=== PATIENT | female | born 1985 | race Hispanic/Latino ===

== ENCOUNTER → 2018-09-24 | Day surgery (SDC) | payer OTHER ==
[~2018-09-24] MED LIST: DICYCLOMINE HCL20 MG PO; LIDOCAINE HCL 2% LOCAL INJ 5 ML SDV VIAL INJ ONE; MIDAZOLAM HCL 2 MG/2 ML VIAL ONE; PANTOPRAZOLE SO40 MG PO; PROPOFOL IV EMULSION 10 MG/ML 50 ML VIAL ONE
--- OUTSIDE RECORDS SUMMARY | 2018-09-24 12:26 | XMS REPORT | Clinical Summary ---
Author Author [facility] Address Unknown Phone Unavailable Care Team Providers Care Motion Picture Director Name Role Phone Asked, No Pcp PCP Unavailable Allergies Comments Active Allergy Reactions Severity Noted Date Cephalexin 11/03/2017 Medications End Date Status Medication Sig Dispensed Refills Start Date 11/03/2018 Active pantoprazole (PROTONIX) Take 1 tablet 30 tablet 1 40 MG EC (40 mg total) 8 tabletIndications: by mouth Gastroesophageal reflux daily. disease, esophagitis presence not specified Active Problems Not on file Encounters Care Team Description Date Type Specialty Steve Almeida MD 11/17/2017 Telephone Gastroenterology Steve Almeida MD 11/11/2017 Telephone Gastroenterology Steve Almeida MD 11/11/2017 Documentation Gastroenterology Michelle Saenz MA 11/10/2017 Telephone Gastroenterology Steve Almeida MD Gastroesophageal reflux disease, esophagitis presence not specified (Primary Dx); Irritable bowel syndrome with constipation 11/03/2017 Office Visit Gastroenterology after 09/23/2017 Social History Date Tobacco Use Types Packs/Day Years Used Never Smoker Smokeless Tobacco: Never Used Alcohol Use Drinks/Week oz/Week Comments No Sex Assigned at Date Recorded Not on file Industry Job Start Date Occupation Not on file Not on file Not on file Travel End Travel History Travel Start No recent travel history available. Last Filed Vital Signs Time Taken Vital Sign Reading 11/03/2017 2:11 PM CDT Blood Pressure 108/79 11/03/2017 2:11 PM CDT Pulse 74 11/03/2017 2:11 PM CDT Temperature 36.8 C (98.2 F) - Respiratory Rate - - Oxygen Saturation - - Inhaled Oxygen - Concentration 11/03/2017 2:11 PM CDT Weight 56.2 kg (124 lb) 11/03/2017 2:11 PM CDT Height 154.9 cm (5' 1") 11/03/2017 2:11 PM CDT Body Mass Index 23.43 Plan of Treatment Health Maintenance Due Date Last Done Comments CERVICAL CANCER SCREENING 2006 INFLUENZA VACCINE 03/04/2018 Results Not on fileafter 09/23/2017 Insurance Payer Benefit Subscriber ID Type Phone Address Plan / Group [facility] xxxxxxxxx HMO/PPO THCARE CHOICE/CHO ICE + Advance Directives Patient has advance care planning documents on file. For more information, vince arguelles contact: Zhang Kearney [address] [place] [address]
[2018-09-24 16:05] VITALS: BP 109/70
--- NOTE | 2018-09-25 00:15 | Operative Report ---
DATE OF PROCEDURE: 09/24/2018 INDICATION FOR EGD: Upper abdominal pain and nausea. MEDICATIONS: The patient was done under MAC. Please see anesthesiologist's note. DESCRIPTION OF PROCEDURE: With the patient in left lateral decubitus position, a flexible fiberoptic Olympus gastroscope was introduced into the esophagus under direct visualization without any difficulty. There was some patchy erythema noted in the distal esophagus. The scope was then advanced with ease into the stomach. Mucosa overlying the antrum and the body revealed some patchy intense erythema and moderate edema, and biopsies were obtained and sent to stain for H. pylori. Pylorus was of normal contour and shape, was intubated with ease and the scope was advanced all the way to the second portion of the duodenum. The mucosa overlying the proximal second portion of the duodenal bulb revealed some patchy intense erythema and moderate edema. Biopsies were obtained to rule out sprue. The scope was then withdrawn back into the stomach and retroflexed. Mucosa overlying the fundus and the cardia appeared to be within normal limits. The scope was then straightened out and was subsequently withdrawn. The patient tolerated the procedure well. IMPRESSION: 1. Distal esophagitis. 2. Gastritis, biopsied. Biopsies sent to stain for Helicobacter pylori . 3. Duodenitis, moderately severe. Biopsies were obtained to rule out Sprue. PLAN: Followup pathology. Increase Protonix to 40 mg 1 p.o. a.c. b.i.d. Mauricio Ram MD [facility] [place]/[facility] /[id number] cc: Bethel Narvaez MD
== END | disposition home or self-care (01) ==
LOC: OR 12:24
PROVIDERS: ATTEND Internal Medicine Gastroenterology
DX: K29.70 Gastritis, unspecified, without bleeding (principal); K29.80 Duodenitis without bleeding; K20.9 Esophagitis, unspecified; K52.89 Other specified noninfective gastroenteritis and colitis; Z88.1 Allergy status to other antibiotic agents
CPT/HCPCS: 43239; 81025; J2001; J2250; J2704

== ENCOUNTER 2021-04-22 10:03 | Emergency (ER) | payer OTHER ==
[~2021-04-22] VITALS: Ht 154.9 cm; Wt 53.2 kg
[~2021-04-22 10:03] MED LIST changes: -LIDOCAINE HCL 2% LOCAL INJ 5 ML SDV VIAL INJ ONE; -MIDAZOLAM HCL 2 MG/2 ML VIAL ONE; -PROPOFOL IV EMULSION 10 MG/ML 50 ML VIAL ONE
[2021-04-22] MEDS ORDERED: RIZATRIPTAN10 MG (10:27)
[2021-04-22] MEDS ORDERED: IMITREX100 MG PO (10:27)
[2021-04-22] MEDS ORDERED: DIPHENHYDRAMINE HCL INJ 50 MG/ML VIAL IV ONE (12:00)
[2021-04-22] MEDS ORDERED: DEXAMETHASONE SOD PHOS 10 MG/1 ML VIAL IV NR (12:00)
[2021-04-22] MEDS ORDERED: SODIUM CHLORIDE 0.9% 1000ML 1,000 ML IV SCH (12:00)
[2021-04-22] MEDS ORDERED: METOCLOPRAMIDE HCL 10 MG/2ML VIAL IV ONE (12:00)
[2021-04-22] MEDS ORDERED: DEXAMETHASONE SOD PHOS INJ 4 MG/ML SDV ONE (12:12)
[2021-04-22] MEDS ORDERED: KETOROLAC TROMETHAMINE 30 MG/ML VIAL IV STA (13:40)
[2021-04-22] MEDS ORDERED: FIORICET-COD 51 EACH PO (13:42)
[2021-04-22] MEDS ORDERED: KETOROLAC TROMETHAMINE 30 MG/ML VIAL ONE (13:58)
== END 2021-04-22 14:00 | disposition home or self-care (01) ==
LOC: FSED 12:05
DX: G43.919 Migraine, unspecified, intractable, without status migrainosus (principal)
CPT/HCPCS: 96374; 96375; 99283; J1100; J1200; J1885; J2765; J7030

== ENCOUNTER 2024-03-21 13:33 | Emergency (ER) | payer OTHER ==
[~2024-03-21] VITALS: Ht 154.9 cm; Wt 55.0 kg
[~2024-03-21 13:33] MED LIST changes: +FIORICET-COD 51 EACH PO; +IMITREX100 MG PO; +RIZATRIPTAN10 MG
[2024-03-21] MEDS ORDERED: SODIUM CHLORIDE 0.9% 1000ML 1,000 ML ONE (15:16)
[2024-03-21] MEDS: METOCLOPRAMIDE HCL 10 MG/2ML VIAL IV ONE (15:20)
[2024-03-21] MEDS: KETOROLAC TROMETHAMINE 30 MG/ML VIAL IV STA (15:20)
[2024-03-21] MEDS: SODIUM CHLORIDE 0.9% 1000ML 1,000 ML IV ONE (15:20)
[2024-03-21] MEDS: DIPHENHYDRAMINE HCL INJ 50 MG/ML VIAL IV ONE (15:20)
[2024-03-21 16:05] VITALS: PULSE 66; RESP 16; TEMP 97.9; O2SAT 98
== END 2024-03-21 16:05 | disposition home or self-care (01) ==
LOC: FSED 14:15
DX: G43.919 Migraine, unspecified, intractable, without status migrainosus (principal)
CPT/HCPCS: 96374; 96375; 99283; J1200; J1885; J2765; J7030